=== PATIENT | female | born 1965 | race Caucasian/White ===

== ENCOUNTER 2016-09-27 18:41 | Emergency (ER) | payer OTHER ==
[~2016-09-27] VITALS: Ht 175.3 cm; Wt 72.7 kg
[~2016-09-27 18:41] MED LIST: CLON0.5T PO; VITAMINS
[2016-09-27] MEDS ORDERED: ONDANSETRON 2MG/ML, 2ML ONE (19:25)
[2016-09-27] MEDS ORDERED: MORPHINE SULFATE 4 MG/ML, 1ML ONE ×2 (19:25→20:43)
[2016-09-27] MEDS ORDERED: ONDANSETRON 2MG/ML, 2ML IVPush ONE (19:30)
[2016-09-27] MEDS ORDERED: SODIUM CHLORIDE FLUSH 10ML SYR IVF ONE (19:30)
[2016-09-27] MEDS ORDERED: SODIUM CHLORIDE 0.9% 1,000ML IVBOLUS ONE (19:30)
[2016-09-27] MEDS: MORPHINE SULFATE 4 MG/ML, 1ML IVPush PRN ×2 (19:35→20:44)
[2016-09-27 19:50] LABS: ASPARTATE AMINO TRANSFERASE 21 U/L (15-37); BLOOD UREA NITROGEN 10 mg/dL (7-18)
[2016-09-27 20:38] LABS: HCG UR OBC PASS
[2016-09-27 21:23] VITALS: BP 97/48
== END 2016-09-27 21:25 | disposition home or self-care (01) ==
LOC: ED 21:19
DX: R11.2 Nausea with vomiting, unspecified (principal); R10.31 Right lower quadrant pain; R10.32 Left lower quadrant pain
CPT/HCPCS: 36415; 80053; 81003; 81025; 83690; 85025; 96361; 96374; 96375; 96376; 99284; J2405; J7030

== ENCOUNTER → 2017-02-26 | Outpatient (CLI) | payer OTHER | END | disposition home or self-care (01) | LOC: CFH 13:46 | PROVIDERS: ATTEND Family Medicine | DX: Z12.31 Encounter for screening mammogram for malignant neoplasm of breast (principal); R51 Headache | CPT/HCPCS: 70551; 77063; G0202 ==